=== PATIENT | female | born 1975 | race Two or more races ===

== ENCOUNTER 2016-09-23 15:48 | Emergency (ER) | payer OTHER ==
[~2016-09-23] VITALS: Ht 160 cm; Wt 77.0 kg
[~2016-09-23 15:48] MED LIST: FERR28TA PO; OFLO5DRO46 LEFT EAR; OMEP20CA16 PO
[2016-09-23 16:04] VITALS: Ht 160 cm; Wt 77.0 kg
--- NOTE | 2016-09-23 17:59 | RADRPT ---
PROCEDURE: US Abdomen. CLINICAL INDICATION: abdominal pain TECHNIQUE: Multiple real-time images were acquired of the patient's right upper quadrant abdomen a nd retroperitoneum utilizing a high resolution transducer. COMPARISON: None FINDINGS: The liver demonstrates increased echogenicity. The liver is slightly enlarged in size and no focal solid lesions are seen. The liver measures 18.7 cm in length. The portal vein is patent with normal direction of flow. No intrahepatic biliary dilatation is seen. No gallstones are identified within the gallbladder. There is no pericholecystic fluid or gallbladd er wall thickening. The common bile duct measures 4 mm in maximal dimension. The pancreas was not well seen due to overlying bowel gas. No free fluid is identified. The right kidney is normal in size, and demonstrate normal echogenicity and cortical thickness. The right kidney measures 10.6 cm in long dimension. There is no evidence of hydronephrosis. There are no kidney stones. RPTAT: AA IMPRESSION: Mild hepatomegaly with diffuse fatty infiltration. No evidence of gallstones. .Gus Zarco MD, Date Time Electronically viewed and signed by .Gus Zarco MD, on 09/23/2016 17:59 .S/
[2016-09-23 18:00] LABS: BASOPHILS % 0.5 % (0.0-2.0); EOSINOPHILS # 0.5 10^3/ul (0.0-0.5); EOSINOPHILS % 5.2 % (0.0-7.0); HEMATOCRIT 32.4 % (37.0-47.0); HEMOGLOBIN 10.6 g/dl (12.0-16.0); LYMPHOCYTES # 2.4 10^3/ul (0.8-2.9); LYMPHOCYTES % 26.6 % (15.0-51.0); MEAN CORPUSCULAR HEMOGLOBIN 28.2 pg (29.0-33.0); MEAN CORPUSCULAR HGB CONC 32.9 g/dl (32.0-37.0); MEAN CORPUSCULAR VOLUME 85.9 fl (82.0-101.0); MONOCYTE # 0.8 10^3/ul (0.3-0.9); MONOCYTES % 8.5 % (0.0-11.0); NEUTROPHIL # 5.4 10^3/ul (1.6-7.5); NEUTROPHILS % 59.2 % (39.0-77.0); PLATELET COUNT 339 10^3/UL (140-440); RED BLOOD COUNT 3.77 10^6/ul (4.20-5.40); RED CELL DISTRIBUTION WIDTH 16.9 % (11.5-14.5); UNCORRECTED WBC 9.1 10^3/ul (4.8-10.8); WHITE BLOOD COUNT 9.1 10^3/ul (4.8-10.8)
[2016-09-23 18:01] LABS: CONDITION 1; LH ANALYZER COMMENTS 1
[2016-09-23 18:11] LABS: ALBUMIN 4.2 g/dl (3.3-4.9); POTASSIUM 4.1 mmol/L (3.5-5.1)
[2016-09-23 18:14] LABS: ALBUMIN/GLOBULIN RATIO 1.2; BILIRUBIN,INDIRECT 0.4 mg/dl (0-1.1); BILIRUBIN,TOTAL 0.4 mg/dl (0.2-1.3); CALCIUM 9.4 mg/dl (8.4-10.2); CREATININE 0.7 mg/dl (0.44-1.00); TOTAL PROTEIN 7.7 g/dl (6.1-8.1)
[2016-09-23 18:24] LABS: ADD UMIC YES; URINE BILIRUBIN (Dip) NEGATIVE (NEGATIVE); URINE BLOOD (Dip) TRACE (NEGATIVE); URINE COLOR LT. YELLOW (YELLOW); URINE GLUCOSE (Dip) NEGATIVE (NEGATIVE); URINE KETONES (Dip) NEGATIVE (NEGATIVE); URINE LEUKOCYTE ESTERASE (Dip) NEGATIVE (NEGATIVE); URINE NITRITE (Dip) NEGATIVE (NEGATIVE); URINE TOTAL PROTEIN (Dip) NEGATIVE (NEGATIVE); URINE UROBILINOGEN (Dip) 0.2 E.U./dL (0.1-1.0)
[2016-09-23 18:29] LABS: SQUAMOUS EPITHELIAL CELL,UR MODERATE; URINE RBCS 0-2 /HPF (0)
--- NOTE | 2016-09-23 19:31 | RADRPT ---
PROCEDURE: CT abdomen and pelvis without IV contrast. CLINICAL INDICATION: Abdomen pain. TECHNIQUE: CT scan of the abdomen and pelvis was performed on a [address] scanner. The patient is scanned without IV contrast. Coronal and sagittal reformatted images were obtained from the axia l source images. Images were reviewed on a high-resolution PACS workstation. Total radiation dose: Total CTDIvol: 15.7 mGy. Total DLP: 816 mGy-cm. COMPARISON: None available. FINDINGS: CT abdomen: The lung bases are clear. The heart is not enlarged without pericardial thickening or effusion. There is severe fatty liver. The liver is normal in size without focal mass or intrahepatic biliary dilatation. The spleen is normal in size and homogeneous in density. The stomach is partially col lapsed but is grossly unremarkable. The pancreas as visualized is normal. The gallbladder is normal and there is no evidence of biliary dilatation. The adrenal glands are symmetrical and normal. There is a tiny nonobstructing stone in the lower po le kristal of the left kidney. The kidneys are symmetrically normal bilaterally. No renal obstructiv e uropathy or mass lesion is seen.. The aorta is normal in caliber. There is no retroperitoneal lymphadenopathy. The roly hepatis reg ion is clear. The bowel and mesentery, as visualized, are equally unremarkable. CT pelvis: The appendix is normal in the right lower quadrant. The small bowel loops situated within the pelvi s are unremarkable. The female pelvic organs are normal. The pelvic sidewalls and inguinal regions are clear. No mass, lymphadenopathy is seen. No acute inflammation seen. The urinary bladder is normal. The surrounding osseous structures are unremarkable. No osteolytic or osteoblastic lesion is detect ed. IMPRESSION: 1. A tiny nonobstructing stone in the lower pole kristal of the left kidney. 2. Severe fatty liver. RPTAT: GG .Martinez Veras MD, MD Date Time Electronically viewed and signed by .Martinez Veras MD, on 09/23/2016 19:31 .Y/
[2016-09-23] MEDS ORDERED: TRAM50TA2 PO (19:38)
[2016-09-23] MEDS ORDERED: ACET500C5 PO (19:38)
--- NOTE | 2016-09-23 19:41 | ERD ---
ER Documentation Chief Complaint Date/Time DATE: 09/23/16 TIME: 19:39 Chief Complaint AP X 3 DAYS, NO PREVIOUS HX HPI This 40-year-old female complains of abdominal pain for last 3 days. She describes it as being in the right midabdomen slightly in the right upper quadrant slightly in the right lower quadrant. She denies any fevers, vomiting , nausea, diarrhea, urinary complaints. She denies any cough or shortness breath or chest pain. ROS All systems reviewed and are negative except as per history of present illness. Medications Home Meds Active Scripts Acetaminophen* (Tylophen*) 500 Mg Capsule, 1 CAP PO Q6H Y for PAIN AND OR ELEVATED TEMP, #15 CAP Prov:TATIANA CORONEL MD 09/23/16 Tramadol HCl (Tramadol HCl) 50 Mg Tablet, 50 MG PO Q4 Y for PAIN, #15 TAB Prov:TATIANA CORONEL MD 09/23/16 Ofloxacin* (Ocuflox*) 0.3%-5 Ml Ophth Drops, 1 DROP LEFT EAR QID, #1 BOTTLE Prov:ROSE CAMACHO PA-C 06/24/16 Reported Medications Omeprazole* (Omeprazole*) 20 Mg Capsule.dr, 20 MG PO DAILY 06/16/13 Ferrous Sulfate (Ferrous Sulfate) 1 Tab Tablet, 1 TAB PO 06/06/12 Allergies Allergies: Coded Allergies: ibuprofen (Verified Allergy, Mild, TACHYCARDIA, 06/16/13) PMhx/Soc History of Surgery: Yes (csection x 2) Anesthesia Reaction: No Hx Neurological Disorder: No Hx Respiratory Disorders: No Hx Cardiac Disorders: No Hx Psychiatric Problems: No Hx Miscellaneous Medical Probl: Yes (ANEMIA 1 MONTH) Hx Alcohol Use: No Hx Substance Use: No Hx Tobacco Use: No Physical Exam Vitals Vital Signs Date Time Temp Pulse Resp B/P Pulse Ox O2 Delivery O2 Flow Rate FiO2 09/23/16 16:04 98.6 83 20 138/69 100 Physical Exam Const: [] Alert, [id number]. Head: Atraumatic Eyes: Normal Conjunctiva ENT: Normal External Ears, Nose and Mouth. Neck: Full range of motion..~ No meningismus. Resp: Clear to auscultation bilaterally Cardio: Regular rate and rhythm, no murmurs Abd: Soft, very mild tenderness in the right midabdomen without rebound. No exquisite Turk sign no tenderness at McBurney's point. non distended. Normal bowel sounds Skin: No petechiae or rashes Back: No midline or flank tenderness Ext: No cyanosis, or edema Neur: Awake and alert Psych: Normal Mood and Affect Result Diagram: 09/23/16 1745 09/23/16 1745 Results 24 hrs Laboratory Tests Test 09/23/16 17:30 09/23/16 17:45 Urine Bilirubin NEGATIVE Urine Clarity CLEAR Urine Color LT. YELLOW Urine Glucose NEGATIVE% Urine Hemoglobin TRACE Urine Ketones NEGATIVE Urine Leukocyte Esterase NEGATIVE Urine Microscopic RBC 0-2/HPF Urine Microscopic WBC 0-2/HPF Urine Nitrite NEGATIVE Urine Specific Burt <=1.005 Urine Squamous Epithelial Cells MODERATE Urine Total Protein NEGATIVE Urine Urobilinogen 0.2 E.U./dL Urine pH 6.0 Alanine Aminotransferase (ALT/SGPT) 29IU/L Albumin 4.2g/dl Albumin/Globulin Ratio 1.20 Alkaline Phosphatase 68IU/L Anion Gap 14 Aspartate Amino Transf (AST/SGOT) 22IU/L Basophils # 0.010^3/ul Basophils % 0.5% Blood Morphology Comment Blood Urea Nitrogen 8mg/dl Calcium Level 9.4mg/dl Carbon Dioxide Level 28mmol/L Chloride Level 106mmol/L Creatinine 0.70mg/dl Direct Bilirubin 0.00mg/dl Eosinophils # 0.510^3/ul Eosinophils % 5.2% Globulin 3.50g/dl Glucose Level 108mg/dl Hematocrit 32.4% Hemoglobin 10.6g/dl Indirect Bilirubin 0.4mg/dl Lipase 107U/L Lymphocytes # 2.410^3/ul Lymphocytes % 26.6% Mean Corpuscular Hemoglobin 28.2pg Mean Corpuscular Hemoglobin Concent 32.9g/dl Mean Corpuscular Volume 85.9fl Mean Platelet Volume 10.0fl Monocytes # 0.810^3/ul Monocytes % 8.5% Neutrophils # 5.410^3/ul Neutrophils % 59.2% Nucleated Red Blood Cells # 0.010^3/ul Nucleated Red Blood Cells % 0.0/100WBC Platelet Count 41956^3/UL Potassium Level 4.1mmol/L Red Blood Count 3.7710^6/ul Red Cell Distribution Width 16.9% Sodium Level 144mmol/L Total Bilirubin 0.4mg/dl Total Protein 7.7g/dl White Blood Count 9.110^3/ul Procedures/MDM CBC shows no leukocytosis. There is a hemoglobin of 10.6. CMP is normal. Urine is negative for infection, glucose and blood. CT abdomen and pelvis was performed given the uncertain cause of pain which shows no acute abnormalities. There is a small undescended left renal stone not in the area of pain, and a fatty liver but no acute findings. Patient has right-sided abdominal pain of uncertain etiology without evidence of appendicitis, hepatobiliary disease, abscess, obstruction, acute abdomen. Patient was discharged home with a course of tramadol and Tylenol and further observation at home. Patient is advised to recheck for new or worsening symptoms with primary care doctor this week. Departure Diagnosis: Primary Impression: Abdominal pain Abdominal location: unspecified location Qualified Code: R10.9 - Abdominal pain, unspecified location Condition: Stable Patient Instructions: Abdominal Pain Additional Instructions: All examinations show no significant findings to explain pain. Recommend further observation at home and recheck for fevers, vomiting, new or worsening symptoms. TATIANA CORONEL MD Sep 23, 2016 19:41
[2016-09-23] MEDS ORDERED: PANT40TA3 PO (19:49)
[2016-09-23 19:52] VITALS: BP 132/74; PULSE 72; RESP 18; TEMP 98.6
[2016-09-23] MEDS ORDERED: traMADol 50 MG TAB PO ONE (20:00)
[2016-09-23] MEDS ORDERED: FAMOTIDINE 20 MG TAB PO ONE (20:00)
== END 2016-09-23 19:55 | disposition home or self-care (01) ==
LOC: FTE 15:48
DX: R10.9 Unspecified abdominal pain (principal)
CPT/HCPCS: 36415; 74176; 76705; 80053; 81001; 83690; 85025; Z7502; Z7610; 81003